=== PATIENT | male | born 1975 | race Caucasian/White ===

== ENCOUNTER 2017-05-08 16:49 | Emergency (ER) | payer BC ==
[~2017-05-08] VITALS: Ht 185.4 cm; Wt 97.5 kg
--- NOTE | 2017-05-08 17:00 | NUR ---
PT TO ED DT RIGHT TESTICLE PAIN AND SWELLING SINCE WEDNESDAY. SEEN BY PCP WEDNESDAY AND WAS PRESCRIBD MANUEL. PT IS AFEBRILE./ VSS
[2017-05-08] MEDS ORDERED: IBUPROFEN 600 MG TABLET PO ONE ×2 (17:27→17:30)
[2017-05-08 17:56] LABS: BASOPHILS % (AUTO) 0.4 % (0.0-2.0); EOSINOPHILS # (AUTO) 0.3 /CMM (0.0-0.7); EOSINOPHILS % (AUTO) 6.2 % (0.0-6.0); HEMATOCRIT 43 % (39-51); HEMOGLOBIN 15.2 g/dL (13.5-17.5); LYMPHOCYTES # (AUTO) 1.3 /CMM (0.8-4.8); LYMPHOCYTES % (AUTO) 24.3 % (20.0-44.0); MEAN CORPUSCULAR HEMOGLOBIN 31 PG (26.0-33.0); MEAN CORPUSCULAR HGB CONC 35 g/dl (31.0-36.0); MEAN CORPUSCULAR VOLUME 89 fL (80-96); MONOCYTES # (AUTO) 0.5 /CMM (0.1-1.30); MONOCYTES % (AUTO) 8.5 % (2.0-12.0); NEUTROPHILS # (AUTO) 3.2 /CMM (1.8-8.9); NEUTROPHILS % (AUTO) 60.6 % (43.0-81.0); PLATELET COUNT (AUTO) 198 /CMM (150-450); RDW COEFFICIENT OF VARIATION 12.8 (11.5-15.0); WHITE BLOOD COUNT (AUTO) 5.3 K/uL (4.3-11.0)
[2017-05-08 17:59] LABS: APPEARANCE,URINE CLEAR (CLEAR); BILIRUBIN,URINE NEGATIVE (NEGATIVE); BLOOD, URINE NEGATIVE Ery/uL (NEGATIVE); COLOR,URINE YELLOW (YELLOW); KETONES,URINE NEGATIVE (NEGATIVE); LEUKOCYTE ESTERASE ,URINE NEGATIVE (NEGATIVE); NITRITE, URINE NEGATIVE (NEGATIVE); PH,URINE 7.5 (5.0-8.0); PROTEIN,URINE NEGATIVE (NEGATIVE); UGLUCOSE NEGATIVE (NEGATIVE); UROBILINOGEN,URINE 0.2 EU/dL (0.2)
[2017-05-08] MEDS ORDERED: CEFTRIAXONE 1 G VIAL IM ONE (18:00)
[2017-05-08 18:07] LABS: CALCIUM, SERUM 9.8 mg/dL (8.5-10.1); CREATININE 0.8 mg/dL (0.6-1.3); POTASSIUM 3.9 mmol/L (3.5-5.1)
[2017-05-08] MEDS ORDERED: CEFTRIAXONE 1 G VIAL ONE (18:08)
[2017-05-08] MEDS ORDERED: LIDOCAINE HCL/PF 2 % 5ML SDV 5 ML VIAL ONE (18:09)
--- NOTE | 2017-05-08 18:41 | NUR ---
Patient discharged to home in stable condition. Written and verbal after care instructions given. Patient verbalizes understanding of instruction.
[2017-05-08 18:42] VITALS: BP 122/78
== END 2017-05-08 18:42 | disposition home or self-care (01) ==
LOC: ER 16:52
DX: N45.1 Epididymitis (principal); N45.2 Orchitis; B35.6 Tinea cruris
CPT/HCPCS: 36415; 76870; 80048; 81001; 85025; 87086; 96372; 99285; A4606; J0696; J3490; Z7610; 81000-TC